=== PATIENT | male | born 1985 | race Caucasian/White ===

== ENCOUNTER 2022-01-24 08:00 | Emergency (ER) | payer BC ==
[~2022-01-24] VITALS: Ht 182.9 cm; Wt 102.3 kg
[~2022-01-24 08:00] MED LIST: ADDERALL15 MG PO; NO HOME MEDICATIONS; NORCO 325 MG-51 TAB PO; NORCO 325 MG-7.1 TAB PO; ULTRAM 50MG TAB50 MG PO
[2022-01-24 08:05] VITALS: TEMP 98
[2022-01-24 08:31] VITALS: BP 131/88; PULSE 87
== END 2022-01-24 08:32 | disposition home or self-care (01) ==
LOC: COL.ER 08:00
DX: M25.571 Pain in right ankle and joints of right foot (principal); M79.89 Other specified soft tissue disorders; X50.1XXA Overexertion from prolonged static or awkward postures, initial encounter; Y93.01 Activity, walking, marching and hiking; Y99.0 Civilian activity done for income or pay

== ENCOUNTER 2023-07-16 10:16 | Emergency (ER) | payer BC ==
[~2023-07-16] VITALS: Ht 182.9 cm; Wt 95.5 kg
[2023-07-16 10:21] VITALS: TEMP 98.1
[2023-07-16 10:56] LABS: BASO % 0.3 % (0.0-2.0); EOS # 0.1 K/mm3 (0.0-0.7); EOS % 0.6 % (0.0-4.0); GRAN % 80.2 % (42.2-75.2); HEMATOCRIT 43.1 % (42.0-52.0); HEMOGLOBIN 14.4 g/dl (13.5-18.0); LYMPH # 1.3 K/mm3 (1.2-3.4); LYMPH % 10.1 % (20.0-51.0); MEAN CELL VOLUME 86 fl (80.0-100.0); MEAN CORPUSCULAR HEMOGLOBIN 29 pg (27-31); MEAN CORPUSCULAR HGB CONC 33 g/dl (33.0-37.0); MEAN PLATELET VOLUME 9.5 fl (7.4-10.4); MONO # 1.1 K/mm3 (0.1-0.6); MONO % 8.6 % (1.7-9.3); PLATELET COUNT 290 K/mm3 (130-400); REDCELL DISTRIBUTION WIDTH-CV 13.6 % (11.5-14.5)
[2023-07-16 11:28] LABS: ALBUMIN 4.2 gm/dL (3.5-5.0); CALCIUM 9.3 mg/dL (8.4-10.2); CREATININE, serum 0.93 mg/dL (0.72-1.25); POTASSIUM 4.2 mmol/L (3.5-4.5); TOTAL PROTEIN 7.3 gm/dL (6.2-8.1)
[2023-07-16 11:36] LABS: BILIRUBIN,TOTAL 0.5 mg/dL (0.2-1.2)
[2023-07-16 11:47] LABS: COLLECTION METHOD CLEAN CATCH
[2023-07-16 11:57] LABS: PH 8.5 (5.0-8.5); URINE APPEARANCE Clear (CLEAR/HAZY); URINE BLOOD Negative (NEGATIVE); URINE COLOR Yellow (YELLOW); URINE GLUCOSE Negative (NEGATIVE); URINE KETONE Negative (NEGATIVE); URINE PROTEIN(semi-quant) Negative (NEGATIVE); URINE RBC 0-2 /hpf (0-2); URINE UROBILINOGEN 0.2 E.U/dL (0.2-1.0)
[2023-07-16 11:58] LABS: SQUAMOUS EPITHELIAL 0-2 /hpf (0-10); URINE BACTERIA None Seen /hpf (NONE SEEN)
[2023-07-16] MEDS ORDERED: ROXICODONE 55 MG/TAB PO (12:33)
[2023-07-16] MEDS ORDERED: ZOFRAN ODT4 MG PO (12:33)
[2023-07-16] MEDS ORDERED: AMOXICILLIN 8751 TAB PO (12:33)
[2023-07-16 12:34] LABS: URINE NITRATE Negative (NEGATIVE)
[2023-07-16 13:05] VITALS: BP 119/69; PULSE 79
== END 2023-07-16 13:07 | disposition home or self-care (01) ==
LOC: COL.ER 10:16
PROVIDERS: Emergency Medicine
DX: K57.32 Diverticulitis of large intestine without perforation or abscess without bleeding (principal); Z87.891 Personal history of nicotine dependence; Z88.2 Allergy status to sulfonamides
CPT/HCPCS: J1885; J2270; J2405; J7030; Q9967